=== PATIENT | male | born 2005 | race Hispanic/Latino ===

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

== ENCOUNTER 2024-08-31 15:11 | Emergency (ER) | payer SELFPAY ==
[~2024-08-31] VITALS: Ht 177.8 cm; Wt 86.2 kg
[2024-08-31 15:44] LABS: RAPID GROUP A STREP negative (NEGATIVE)
[2024-08-31] MEDS: acetaMINOPHEN 500 MG TABLET PO STA (15:46)
[2024-08-31] MEDS: 0.9%NACL 1000ML 1,000 ML IV STA (15:46)
[2024-08-31 15:47] LABS: SARS-CoV-2, RNA, NAAT NEGATIVE SARS CoV-2 (NEGATIVE)
[2024-08-31] MEDS: ketOROlac 15MG/ML VIAL (15MG/ML) IV STA (15:52)
[2024-08-31 15:53] LABS: INFLUENZA TYPE A Negative For Type A (NEGATIVE); INFLUENZA TYPE B Negative For Type B (NEGATIVE)
--- NOTE | 2024-08-31 16:21 | ERN ---
ED Note History of Present Illness Stated Complaint: FLU LIKE SYMPTOMS Chief Complaint: Flu Symptoms Time Seen by MD: 15:15 Time Seen by Midlevel: 15:20 Dictation: 19-year-old male with no past medical history coming in complaining of flu-like symptoms started yesterday. Patient states yesterday had a fever but today he does not. Patient states yesterday he was congested but today he has not. Denies any sick contacts. Denies any shortness a breath, chest pain, nausea, vomiting or diarrhea. Past Medical History Past Medical History: No Pertinent History Surgical History: None Review of System Dictation Constitutional: Subjective fever,chills, and no weight loss Eyes: Negative for injury, pain,redness, and discharge ENT: Negative for injury,pain or swelling Cardiovascular: Negative for chest pain, palpitations, and edema Respiratory: Negative for shortness of breath, cough, and wheezing, Abdomen/GI: Negative for abdominal pain, nausea, vomiting, diarrhea, and constipation Back: Negative for injury and pain : Negative for injury, bleeding and discharge MS/Extremity: Negative for injury and deformity Skin: Negative for rash, and discoloration Neuro: Negative for headache, weakness, numbness, tingling, and seizure Psych: Negative for suicide ideation, homicidal ideation, and hallucinations Review of Systems: was completed Initial Vital Sign VS Vital Signs Date Time Temp Pulse Resp B/P (MAP) Pulse Ox O2 Delivery O2 Flow Rate FiO2 08/31/24 15:12 98.4 104 20 176/78 99 Room Air 0 Physical Exam Dictation General: awake, alert, NAD Head/Face: Normocephalic, atraumatic Eyes: PERRL, EOMI, vision at baseline ENT: oral cavity clear, TMs clear, no signs of infection Neck: Trachea midline, supple, no nuchal rigidity Cardiovascular: RRR, normal S1/S2, No MRGs, no JVD Respiratory: CTAB, no respiratory distress, No rales or wheezes Abdomen: Soft, non-tender, non-distended, normal bowel sounds, no guarding or rebound. Skin: Warm, dry, normal turgor, no rash MS/Extremity: Pulses equal, no cyanosis, neurovascular intact, FROM Neuro: COAx4, GCS 15, strength 5/5, CN 2-12 intact, normal cerebellar exam, normal gait, Psych: Normal behavior, mood, and affect normal Results (Laboratory/Radiology) Laboratory/Radiology Laboratory Tests Test 08/31/24 15:16 Influenza Type A Antigen Negative For Type A Influenza Type B Antigen Negative For Type B SARS-CoV-2, RNA, NAAT NEGATIVE SARS CoV-2 Group A Streptococcus Rapid negative (NEGATIVE) Labs Reviewed?: Yes ED Course ED Course Orders Procedure Category Date Status Time Covid Rna Naat LAB 08/31/24 Complete 15:21 Rapid (Group A Strep) LAB 08/31/24 Complete 15:21 0.9%Nacl 1000ml (Ns PHA 08/31/24 In Process 1000ml) 15:21 Ketorolac PHA 08/31/24 Complete Tromethamine 15mg/Ml 15:21 Acetaminophen 500mg PHA 08/31/24 Complete Tab (Tylenol 500mg T 15:21 Influenza Type A & B, LAB 08/31/24 Complete Rapid 15:16 Current Medications Medications (Trade) Dose Ordered Sig/Christine Route PRN Reason Start Time Stop Time Status Last Admin Dose Admin Acetaminophen (TYLenol 500MG TAB) 1,000 mg ONCE STAT PO 08/31/24 15:21 08/31/24 15:24 DC 08/31/24 15:46 Ketorolac Tromethamine (toRADol) 15 mg ONCE STAT IV 08/31/24 15:21 08/31/24 15:24 DC 08/31/24 15:52 Sodium Chloride 1,000 ml @ 1,000 mls/hr Q1H STAT IV 08/31/24 15:21 08/31/24 16:20 08/31/24 15:46 Vital Signs Date Time Temp Pulse Resp B/P (MAP) Pulse Ox O2 Delivery O2 Flow Rate FiO2 08/31/24 15:12 98.4 104 20 176/78 99 Room Air 0 Medical Decision Making MDM MDM:19-year-old male with no past medical history coming in complaining of flu- like symptoms started yesterday. Patient states yesterday had a fever but today he does not. Patient states yesterday he was congested but today he has not. Denies any sick contacts. Denies any shortness a breath, chest pain, nausea, vomiting or diarrhea. Swabs for COVID, flu, strep are negative. Discussed findings with the patient. Educated patient more likely has a viral syndrome and he can take [id number] Tylenol, Motrin or cough medication. Patient verbalized understanding, answered all questions. Differential diagnosis: Influenza, COVID, viral syndrome, strep throat Rationale: Tests considered and ordered secondary to shared decision making include: Previous outside records reviewed: Old ER visits. Risk of complication and/or morbidity or mortality of patient management: None Medications-Per medication reconciliation Need for hospitalization: Patient does not meet criteria for hospitalization. Need for emergency major/minor surgery: No There are no social concerns with this patient. Prescription drug management Prescriptions will include symptomatic care Patient's prior external medical records from other ER visits were reviewed by me as indicated. Prior testing and results from previous visits were reviewed. Prior tests were taken into account with medical decision making and resource utilization, independent historian/historians were used to obtain complete medical history. I independently interpreted the test that were performed, results were reviewed by me and considered findings on radiology if ordered. Medical management and examination interpretation discussions were had by me with other qualified healthcare professionals as indicated for the patient's care. DX & DISP Disposition: Discharge Departure Impression: Primary Impression: Viral syndrome Condition: Stable Additional Instructions: All your swabs are negative. You can continue taking Tylenol or Motrin o [id number] for fever control. More than likely you have a viral syndrome this can last anywhere from 7-10 days. Important thing is to maintain hydration, avoid any sugary drinks any crease fluids with electrolytes. You can take [id number] medications for congestion and cough like Mucinex or Tessalon Perles. Referrals: SELF,REFERRAL (PCP) Time of Disposition: 16:20 I have reviewed the case, and I agree with, Diagnosis and Plan YUMIKO ROSE NP Aug 31, 2024 16:21
[2024-08-31 16:50] VITALS: BP 154/87; PULSE 92; RESP 20; TEMP 98.4; O2SAT 99
== END 2024-08-31 16:58 | disposition home or self-care (01) ==
LOC: EDH 15:11
DX: B34.9 Viral infection, unspecified (principal); Z20.822 Contact with and (suspected) exposure to COVID-19
CPT/HCPCS: 99283; 96374; 87635; 87880; 87804 ×2; 36415; J7030 ×2; J1885

== ENCOUNTER 2024-09-05 19:31 | Emergency (ER) | payer SELFPAY ==
[~2024-09-05] VITALS: Ht 180.3 cm; Wt 86.2 kg
[2024-09-05 19:31] VITALS: BP 160/97
--- NOTE | 2024-09-05 19:49 | ERN ---
ED Note History of Present Illness Stated Complaint: MULT COMPL Chief Complaint: Cough Time Seen by MD: 19:34 Dictation: PATIENT IS HERE WITH COMPLAINTS OF A LOW-GRADE FEVER WITH NONPRODUCTIVE COUGH HE HAS HAD FOR SEVERAL DAYS. NO NAUSEA VOMITING NO LOSS OF TASTE OR SMELL. STATES HE HAS HAD CLEAR RHINITIS WITH A SORE THROAT WITH PAINFUL SWALLOWING. STATES HE WAS SEEN HERE SEVERAL DAYS AGO AND WAS TREATED FOR VIRAL SYNDROME, DID NOT FOLLOW UP WITH THE PRIMARY CARE DOCTOR BECAUSE HE DOES NOT HAVE ONE. DUE TO INSURANCE. HE HAS TAKEN MUCINEX [id number] Allergies: Coded Allergies: No Known Allergies (Unverified Allergy, Unknown, 09/05/24) Past Medical History Past Medical History: No Pertinent History Surgical History: None RN Note Reviewed/Agreed w/PFSH: Yes Review of System Dictation CONSTITUTIONAL: NEGATIVE EXCEPT FOR HPI HEAD/FACE: NEGATIVE EXCEPT FOR HPI EENT: NEGATIVE EXCEPT FOR HPI CLEAR RHINITIS WITH SORE THROAT WITH RESPIRATORY: NEGATIVE EXCEPT FOR HPI PAINFUL SWALLOWING PERSISTENT DRY COUGH GASTROINTESTINAL/ABDOMINAL: NEGATIVE EXCEPT FOR HPI GENITOURINARY: NEGATIVE EXCEPT FOR HPI MUSCULOSKELETAL: NEGATIVE EXCEPT FOR HPI INTEGUMENTARY: NEGATIVE EXCEPT FOR HPI NEUROLOGICAL/PSYCH: NEGATIVE EXCEPT FOR HPI HEMATOLOGIC/LYMPHATIC: NEGATIVE EXCEPT FOR HPI ALL SYSTEMS NEGATIVE, EXCEPT NOTED ABOVE. 13 POINT REVIEW OF SYSTEMS ASSESSED AND ALL NEGATIVE EXCEPT FOR ABOVE. Initial Vital Sign VS Vital Signs Date Time Temp Pulse Resp B/P (MAP) Pulse Ox O2 Delivery O2 Flow Rate FiO2 09/05/24 19:31 98.4 112 20 160/97 97 Room Air 09/05/24 20:28 0 21 Physical Exam Dictation VITAL SIGNS REVIEWED GENERAL APPEARANCE: ALERT, ORIENTED X 3, MILD ACUTE DISTRESS, WELL DEVELOPED, NOURISHED. HEAD AND FACE: NON-TRAUMATIC. EYES: PERRL, PINK CONJUNCTIVAS, EYELID NO TRAUMA, ANTERIOR CHAMBER WITH ARCUS SENILIS. EARS: PINNAS INTACT AND NO SIGNS OF TRAUMA OR ERYTHEMA EAR CANALS CLEAR AND NO DISCHARGE TM NO ERYTHEMA NOSE: CLEAR DISCHARGE, NO BLEEDING. OROPHARYNX: MOUTH NORMAL, TONGUE PINK, PHARYNX CLEAR, MODERATE PHARYNGEAL ERYTHEMA, TONSILS NO EXUDATES, NO ABSCESSES NOTED, MUCOUS MEMBRANE MOIST UVULA MIDLINE, VOICE IS CLEAR NECK: SUPPLE, NON-TENDER, NO THYROMEGALY, NO MASSES, NO JVD, NO BRUITS BREAST:DEFERRED CHEST:NO TENDERNESS, NO CREPITUS, NO PARADOXICAL MOVEMENT, NO RETRACTIONS LUNGS:CLEAR, WELL-VENTILATED, SYMMETRIC, NO RALES, NO WHEEZING, NO RHONCHI, NO STRIDOR, GOOD BREATH SOUNDS BILATERALLY BILATERAL BREATH SOUNDS CLEAR TO AUSCULTATION, PERSISTENT DRY COUGH NOTED HEART: REGULAR RATE, REGULAR RHYTHM, NO MURMUR, NO GALLOPS VASCULAR: NO PERIPHERAL EDEMA, ABDOMEN: SOFT, POSITIVE BOWEL SOUNDS, NONDISTENDED, NO GUARDING, NONTENDER, NO REBOUND, NO MASSES NO HEPATOMEGALY, NO SPLENOMEGALY, NO MARTINS'S SIGN, NO HERNIAS. RECTAL: DEFERRED GENITAL: DEFERRED NEUROLOGICAL: NORMAL SPEECH, MOTOR FUNCTION INTACT, SENSORY FUNCTION INTACT MUSCULOSKELETAL: NECK NONTENDER, FULL RANGE OF MOTION, BACK NONTENDER, FULL RANGE OF MOTION, EXTREMITIES: NONTENDER, FULL RANGE OF MOTION SKIN: COLOR PINK, DRY, NO TURGOR, NO RASH, NO LACERATIONS, NO ABRASIONS, NO CONTUSIONS. LYMPHATIC: DEFERRED Results (Laboratory/Radiology) Laboratory/Radiology Laboratory Tests Test 09/05/24 20:21 Influenza Type A Antigen Negative For Type A Influenza Type B Antigen Negative For Type B SARS-CoV-2 Antigen (Rapid) PRESUMPTIVE NEGATIVE Group A Streptococcus Rapid negative (NEGATIVE) Labs Reviewed?: Yes ED Course ED Course Orders Procedure Category Date Status Time Dexamethasone 4mg/Ml PHA 09/05/24 Complete 1ml Vial (Dexametha 20:00 Ibuprofen 800 Mg Tab PHA 09/05/24 Complete (Motrin) 20:00 Covid19 (Sars Antigen LAB 09/05/24 Complete Rapid) 19:46 Rapid (Group A Strep) LAB 09/05/24 Complete 19:46 Influenza Type A & B, LAB 09/05/24 Complete Rapid 19:46 Current Medications Medications (Trade) Dose Ordered Sig/Christine Route PRN Reason Start Time Stop Time Status Last Admin Dose Admin Dexamethasone Sodium Phosphate (dexaMETHasone 4MG/ML 1ML VIAL) 8 mg ONCE ONCE IM 09/05/24 20:00 09/05/24 20:01 DC 09/05/24 20:45 Ibuprofen (moTRIN) 800 mg ONCE ONCE PO 09/05/24 20:00 09/05/24 20:01 DC 09/05/24 20:45 Vital Signs Date Time Temp Pulse Resp B/P (MAP) Pulse Ox O2 Delivery O2 Flow Rate FiO2 09/05/24 20:28 98.4 112 20 97 Room Air* 0 21 09/05/24 19:31 98.4 112 20 160/97 97 Room Air 2107/PATIENT STATES HE FEELS BETTER AFTER DECADRON. WE WILL BE DISCHARGED HOME WITH VIRAL URI WITH COUGH AND ACUTE PHARYNGITIS UNSPECIFIED. Medical Decision Making MDM MEDICAL DISCHARGE MAKING BASED ON SWABS FOR FLU COVID AND STREP. ALL SWABS NEGATIVE PATIENT STATES HE FEELS BETTER AFTER DECADRON IM WE WILL BE DISCHARGED HOME WITH PREDNISONE TITRATING DOSE ZITHROMAX 500 DAILY FOR FIVE DAYS ALBUTEROL INHALER TESSALON PERLES PATIENT GIVEN A LIST OF PRIMARY CARE DOCTORS THAT ARE ON STAFF AT [facility] – [place], [place] TO FOLLOW UP NEXT WEEK DX & DISP Disposition: Discharge Departure Impression: Primary Impression: Viral URI with cough Additional Impression: Acute pharyngitis, unspecified Condition: Stable Scripts Prednisone (Prednisone) 20 Mg Tablet 1 TAB PO AD for 6 Days, #14 TAB 0 Refills TAKE 1 TAB BY MOUTH THREE TIMES PER DAY X3 DAYS, THEN TAKE 1 TAB BY MOUTH TWICE A DAY X2 DAYS, THEN TAKE 1 TAB BY MOUTH ONCE A DAY X1 DAY. Prov: NATASHA DAVILA NP 09/05/24 Benzonatate (Tessalon Perles) 100 Mg Cap 100 MG PO TID for cough, #30 CAP 0 Refills Prov: NATASHA DAVILA NP 09/05/24 Albuterol Sulfate (Ventolin Hfa/Proventil Hfa/Proair Hfa) 90 Mcg Puff 2 PUFF IH Q4H for WHEEZING, #1 INHALER 0 Refills Prov: NATASHA DAVILA NP 09/05/24 Azithromycin (Zithromax Tri-Truong) 500 Mg Tablet 500 MG PO DAILY for 7 Days, #7 TAB Prov: NATASHA DAVILA NP 09/05/24 Additional Instructions: FOLLOW-UP WITH PRIMARY CARE PROVIDER IN 1 TO 2 DAYS. TAKE MEDICATIONS DIRECTED HERE IN THE EMERGENCY ROOM. OKAY TO CONTINUE HOME MEDICATIONS UNLESS OTHERWISE DISCUSSED DURING YOUR VISIT IN THE EMERGENCY ROOM TODAY. RETURN TO YOUR NEAREST EMERGENCY ROOM IF SYMPTOMS WORSEN OR IF THERE IS NO IMPROVEMENT. CALL 911 IF YOU NEED IMMEDIATE ASSISTANCE. TAKE TYLENOL OR MOTRIN [id number] NEEDED AND IF NO CONTRAINDICATIONS ARE PRESENT. INCREASE ORAL HYDRATION. A WOUND CULTURE OR URINE CULTURE WAS ORDERED HERE IN THE EMERGENCY ROOM DEPARTMENT PLEASE FOLLOW-UP WITH PRIMARY CARE PROVIDER AND ADVISE THEM TO GET REPEAT PORTS FROM OUR FACILITY. IF YOU HAD ANY LUC WRAP/SPLINTS THAT WERE APPLIED HERE, PLEASE DO NOT REMOVE THEM UNTIL YOU SEE YOUR PRIMARY CARE OR SPECIALTY. USE ALBUTEROL INHALER EVERY4 HOURS WHILE AWAKE FOR THE NEXT THREE DAYS. TAKE AZITHROMYCIN AND PREDNISONE DIRECTED UNTIL GONE. INCREASE YOUR WATER INTAKE. SEE ONE OF THE DOCTORS ON THE LIST PROVIDED YOU IN THE NEXT 2-3 DAYS FOR FOLLOW UP AND MANAGEMENT Referrals: SELF,REFERRAL (PCP) Time of Disposition: 21:08 I have reviewed the case, and I agree with, Diagnosis and Plan NATASHA DAVILA NP Sep 05, 2024 19:49
[2024-09-05 20:28] VITALS: PULSE 112; RESP 20; TEMP 98.4; O2SAT 97
[2024-09-05 20:40] LABS: RAPID GROUP A STREP negative (NEGATIVE)
[2024-09-05] MEDS: ibuPROFEN 800 MG TAB PO ONE (20:45)
[2024-09-05] MEDS: dexaMETHasone SOD PHOSPHATE 4 MG/ML 1ML VIAL IM ONE (20:45)
[2024-09-05 20:51] LABS: COVID19 (SARS ANTIGEN RAPID) PRESUMPTIVE NEGATIVE (NEGATIVE)
[2024-09-05 20:57] LABS: INFLUENZA TYPE A Negative For Type A (NEGATIVE); INFLUENZA TYPE B Negative For Type B (NEGATIVE)
[2024-09-05] MEDS ORDERED: PRED20TA3 PO (21:09)
[2024-09-05] MEDS ORDERED: AZIT500T2 PO (21:09)
[2024-09-05] MEDS ORDERED: ALBUHFA IH (21:09)
[2024-09-05] MEDS ORDERED: BENZ-39 PO (21:09)
== END 2024-09-05 21:22 | disposition home or self-care (01) ==
LOC: EDH 19:31
DX: J06.9 Acute upper respiratory infection, unspecified (principal); R05.9 Cough, unspecified; B97.89 Other viral agents as the cause of diseases classified elsewhere; J02.9 Acute pharyngitis, unspecified; Z20.822 Contact with and (suspected) exposure to COVID-19
CPT/HCPCS: 99283; 87426; 87880; 87804 ×2; 96372; J1100